=== PATIENT | male | born 1940 | race Caucasian/White ===

== ENCOUNTER 2022-06-05 11:57 | Outpatient (CLI) | payer MEDICARE, SELFPAY | END 2022-06-05 11:58 | disposition home or self-care (01) | LOC: NFLDUCREF 06-09 10:10 | PROVIDERS: PCP Internal Medicine; Visit Provider Nurse Practitioner Family | DX: R33.9 Retention of urine, unspecified (principal); R39.9 Unspecified symptoms and signs involving the genitourinary system; R82.90 Unspecified abnormal findings in urine | CPT/HCPCS: 87086 ==

== ENCOUNTER 2022-06-05 12:44 | Emergency (ER) | payer MEDICARE, SELFPAY ==
[2022-06-05] VITALS (17 sets, daily range): BP systolic 144–187; BP diastolic 67–90; PULSE 30–45; RESP 18; TEMP 36.2; O2SAT 94–99; BMI 30.8
--- NOTE | 2022-06-05 12:55 | ED.GENADULT ---
HPI - General Adult General Time Seen by Provider: 12:55 Date Seen: 06/05/22 Chief complaint: Arrhythmia/Palpitations Stated complaint: Possible Heart Problem Time Seen by Provider: 06/05/22 12:54 Source: patient and RN notes reviewed Mode of arrival: ambulatory Limitations: no limitations History of Present Illness HPI narrative: Patient is an 82-year-old male referred to us from urgent care with a pulse in the 30s. He went to Urgent Care for urinary symptoms with difficulty urinating, dribbling, difficulty with stream. He denies any fevers chills, no abdominal pain. He has never been evaluated for urinary difficulty before. He has no dysuria. He has felt short of breath over week or so, states his blood pressure machine is not been able to read his pulse for the last week or so. He notes he goes outside in the cool air gets moving around and then feels better. Very remote history of smoking, nothing current. He has not been sick with any cough or cold symptoms. Does not believe he has been ill with COVID. No nausea or vomiting. He denies any history of arrhythmia before. He states his family members all of heart attacks and follow over and knock their teeth out. He states he is not staying in the hospital, he is going home. He does not want me to forget him in the room for the next week. He denies any swelling. He is on no prescription medicines, will use Tylenol periodically for joint aches and pains. Related Data Previous Rx's Medication Instructions Recorded amoxicillin 875 mg-potassium 1 tab PO BID 7 days #13 tabs 06/05/22 clavulanate 125 mg tablet Allergies Allergy/AdvReac Type Severity Reaction Status Date / Time No Known Drug Allergies Allergy Verified 06/05/22 10:46 Review of Systems Status of ROS: Reports: 10 or more systems reviewed and unremarkable except as noted in History and below Exam Const: Vital Signs, click to edit/add: Vital Signs - 24 hr 06/05/22 12:50 06/05/22 13:03 06/05/22 13:15 Temperature 97.1 F L Pulse Rate 30 L Pulse Rate [Right Pulse Oximeter] 34 L Respiratory Rate 18 Blood Pressure Blood Pressure [Ri ght Upper Arm] 187/81 H Pulse Oximetry 97 95 97 Oxygen Delivery Me thod Room Air 06/05/22 13:18 06/05/22 13:19 06/05/22 13:30 Temperature Pulse Rate 40 L 34 L 31 L Pulse Rate [Right Pulse Oximeter] Respiratory Rate Blood Pressure 144/85 H Blood Pressure [Ri ght Upper Arm] Pulse Oximetry 97 99 98 Oxygen Delivery Me thod 06/05/22 13:32 06/05/22 13:51 06/05/22 13:53 Temperature Pulse Rate 32 L 33 L 34 L Pulse Rate [Right Pulse Oximeter] Respiratory Rate Blood Pressure 151/77 H 157/90 H Blood Pressure [Ri ght Upper Arm] Pulse Oximetry 95 97 94 Oxygen Delivery Me thod 06/05/22 14:00 06/05/22 14:02 06/05/22 14:03 Temperature Pulse Rate 31 L 32 L 31 L Pulse Rate [Right Pulse Oximeter] Respiratory Rate Blood Pressure 164/67 H Blood Pressure [Ri ght Upper Arm] Pulse Oximetry 96 94 94 Oxygen Delivery Me thod 06/05/22 14:15 06/05/22 14:30 06/05/22 14:32 Temperature Pulse Rate 31 L 42 L 33 L Pulse Rate [Right Pulse Oximeter] Respiratory Rate Blood Pressure 155/69 H Blood Pressure [Ri ght Upper Arm] Pulse Oximetry 96 94 95 Oxygen Delivery Me thod Documenting provider has reviewed patient's vital signs: yes Common normals: no apparent distress, oriented x3, no limitations, healthy appearing, alert and well nourished General appearance: cooperative, comfortable and well kempt Nutritional appearance: overweight HENMT: Common normals: normocephalic, head/scalp atraumatic, hearing grossly normal bilaterally, external nose normal, nasal mucous membranes and turbinates normal, moist oral mucous membranes, oropharynx normal, dentition normal and gingiva normal Head and scalp: normocephalic and atraumatic Nose: external nose normal and nasal mucous membranes and turbinates normal Eye: Common normals: PERRL, EOMs intact bilaterally, conjunctivae normal and no scleral icterus Conjunctiva: conjunctiva(e) normal Pupil: PERRL Neck & C-Spine: Common normals: full ROM, no lymphadenopathy, supple, no meningeal signs, no JVD and thyroid normal Thyroid: thyroid normal Chest: Common normals: inspection of chest normal and palpation of chest normal Resp: Common normals: normal respiratory effort, no retractions, no use of accessory muscles and clear to auscultation bilaterally Auscultation: clear to auscultation bilaterally Cardio: Common normals: no JVD, S1 normal heart sound, S2 normal heart sound, no gallops, no clicks and no murmurs Rate: bradycardic Heart sounds: S1 normal and S2 normal GI: Common normals: Normal to inspection, nondistended, normoactive bowel sounds present, soft to palpation, non-tender, no hepatosplenomegaly and no masses Palpation: soft and no hepatosplenomegaly Extremity: Common normals: normal to inspection, full ROM, normal capillary refill, no joint enlargement, no clubbing, cyanosis or edema, no calf tenderness and no pedal edema Neuro: Common normals: oriented x3 Sensorium/orientation: alert Meningeal signs: no meningeal signs Psych: Appearance: well kempt Course Course Hospital Course: Patient will be on cardiac monitoring, pulse oximetry. Will get appropriate labs, will get a portable chest x-ray. They have urinalysis at urgent care which will be reviewed, will obtain a bladder scan to see if this is outlet obstruction. The bradycardia does not seem to be medication induced as he states the only thing he takes is Tylenol. Thus, is likely sinus node dysfunction and will need to talk to Cardiology at some point but will await labs first. Reevaluation(s) Reevaluation #1: Reviewed with David crowe a discussion with the billing and quality technician. They plan to follow up with [facility] in [place]. We will give him a dose of oral antibiotics here. Given that there is the possibility of some pneumonia on his chest x-ray, although he is not clinically having excessive symptoms, will cover with Augmentin for UTI and possible lung etiology based on his chest x-ray. Really he notes if he feels short of breath if he starts moving around getting up and being active, this actually improves. Time: 14:52 Consultations Consultation #1: Spoke with Dr. Toledo cardiology on-call from [email or web address]. He felt this patient could be monitored outpatient. I did send him the EKG. He would recommend outpatient monitoring to assess the burden, obtain an echo. Reviewed with him that patient felt better when he was active, he felt that made ischemic disease less likely as possible etiology. Time: 14:18 Vital Signs Vital signs: Initial Vital Signs Temperature 97.1 F L 06/05/22 12:50 Temperature Source Temporal Artery Scan 06/05/22 12:50 Pulse Rate 34 L 06/05/22 12:50 Respiratory Rate 18 06/05/22 12:50 Blood Pressure 187/81 H 06/05/22 12:50 Blood Pressure Mean 116 06/05/22 12:50 Blood Pressure Position Sitting 06/05/22 12:50 Pulse Oximetry 97 06/05/22 12:50 Oxygen Delivery Method 06/05/22 12:50 Vital Signs Temperature 97.1 F L 06/05/22 12:50 Pulse Rate 34 L 06/05/22 12:50 Respiratory Rate 18 06/05/22 12:50 Blood Pressure 187/81 H 06/05/22 12:50 Pulse Oximetry 97 06/05/22 12:50 Oxygen Delivery Method 06/05/22 12:50 Temperature 97.1 F L 06/05/22 12:50 Pulse Rate 33 L 06/05/22 14:32 Respiratory Rate 18 06/05/22 12:50 Blood Pressure 155/69 H 06/05/22 14:32 Pulse Oximetry 95 06/05/22 14:32 Oxygen Delivery Method 06/05/22 12:50 Medical Decision Making Lab Data Lab results reviewed: Yes I reviewed the patient's lab results Labs: Lab Results 06/05/22 06/05/22 06/05/22 Range/Units 12:55 12:55 12:55 WBC 6.75 (4.50-11.00) K/uL RBC 4.33 (4.30-5.90) m/uL Hgb 15.0 (13.5-17.5) gm/dL Hct 44.1 (37.0-53.0) % MCV 102 H (80-100) fL MCH 35 H (26-34) pg MCHC 34 (32-36) gm/dL RDW Coeff of Mike 13.5 (11.5-15.5) % Plt Count 203 (140-440) K/uL Neut % (Auto) 61.3 (42.0-72.0) % Lymph % (Auto) 27.6 (20-44) % Bacon % (Auto) 9.8 (0.0-11.0) % Eos % (Auto) 0.6 (0.0-7.0) % Baso % (Auto) 0.3 (0.0-3.0) % Neut # (Auto) 4.14 (1.7-7.0) K/uL Lymph # (Auto) 1.86 (0.90-2.90) K/uL Bacon # (Auto) 0.70 (0.00-0.90) K/UL Eos # (Auto) 0.04 (0.00-0.50) K/uL Baso # (Auto) 0.02 (0.00-0.30) K/uL Abs Immat Gran (auto) 0.03 (0.00-0.30) K/uL VBG pH (7.32-7.43) VBG pCO2 (40-50) mmHG VBG pO2 (25-47) mmHG VBG HCO3 (21-28) mmol/L Sodium 141 (135-149) mmol/L Potassium 3.8 (3.6-5.1) mmol/L Chloride 105 (96-114) mmol/L Carbon Dioxide 27 (20-32) mmol/L BUN 15 (7-30) mg/dL Creatinine 1.0 (0.5-1.5) mg/dL Estimated Creat Clear 65.08 Estimated GFR 75 ml/min Glucose 118 H (60-115) mg/dL Calcium 9.2 (8.4-10.6) mg/dL Magnesium 2.2 (1.5-2.6) mg/dL Total Bilirubin 1.1 (0.1-1.5) mg/dL AST 30 (12-35) U/L ALT 23 (4-50) U/L Alkaline Phosphatase 117 (40-150) U/L C-Reactive Protein 0.7 (0.5-1.0) mg/dL NT-Pro-B Natriuret Pep 444 (0-450) PG/mL Total Protein 7.2 (6.0-8.3) g/dL Albumin 4.5 (3.3-5.0) g/dL TSH 2.290 (0.270-4.200) uIU/mL SARS-CoV-2 (PCR) (Negative) POC Troponin I (0.01-0.04) ng/ml 06/05/22 06/05/22 06/05/22 Range/Units 12:55 13:03 13:03 WBC (4.50-11.00) K/uL RBC (4.30-5.90) m/uL Hgb (13.5-17.5) gm/dL Hct (37.0-53.0) % MCV (80-100) fL MCH (26-34) pg MCHC (32-36) gm/dL RDW Coeff of Mike (11.5-15.5) % Plt Count (140-440) K/uL Neut % (Auto) (42.0-72.0) % Lymph % (Auto) (20-44) % Bacon % (Auto) (0.0-11.0) % Eos % (Auto) (0.0-7.0) % Baso % (Auto) (0.0-3.0) % Neut # (Auto) (1.7-7.0) K/uL Lymph # (Auto) (0.90-2.90) K/uL Bacon # (Auto) (0.00-0.90) K/UL Eos # (Auto) (0.00-0.50) K/uL Baso # (Auto) (0.00-0.30) K/uL Abs Immat Gran (auto) (0.00-0.30) K/uL VBG pH 7.395 (7.32-7.43) VBG pCO2 47 (40-50) mmHG VBG pO2 32.9 (25-47) mmHG VBG HCO3 29 H (21-28) mmol/L Sodium (135-149) mmol/L Potassium (3.6-5.1) mmol/L Chloride (96-114) mmol/L Carbon Dioxide (20-32) mmol/L BUN (7-30) mg/dL Creatinine (0.5-1.5) mg/dL Estimated Creat Clear Estimated GFR ml/min Glucose (60-115) mg/dL Calcium (8.4-10.6) mg/dL Magnesium (1.5-2.6) mg/dL Total Bilirubin (0.1-1.5) mg/dL AST (12-35) U/L ALT (4-50) U/L Alkaline Phosphatase (40-150) U/L C-Reactive Protein (0.5-1.0) mg/dL NT-Pro-B Natriuret Pep (0-450) PG/mL Total Protein (6.0-8.3) g/dL Albumin (3.3-5.0) g/dL TSH (0.270-4.200) uIU/mL SARS-CoV-2 (PCR) Negative SARS-CoV-2 (Negative) POC Troponin I 0.00 L (0.01-0.04) ng/ml Imaging Data Chest x-ray: Attestation: I have reviewed the pertinent imaging results. Radiologist's impression: Patient: [facility] Facility:?[facility] Patient ID:?[id number] Site Patient ID:?[id number]. Site :?[id number] Study:?XRay Chest PORTABLE-06/05/2022 1:24:42 PM Ordering Physician:Lilly Harris Final Report: INDICATION: Bradycardia. COMPARISON: None. TECHNIQUE: Single chest radiograph. FINDINGS: Heart size is not enlarged. Linear right lower lobe pulmonary opacities which may represent atelectasis. No significant pleural effusion or pneumothorax. IMPRESSION: Right lower lobe pulmonary opacities may represent atelectasis, however aspiration or infection could have a similar appearance. Dictated by Eric Nielsen MD @ 06/05/2022 2:00:02 PM (Electronic Signature) ECG Data Attestation: I personally reviewed and interpreted this ECG as follows: (Bradycardia, about 30 for rate, bigeminy pattern.) Prior ECG tracings: not available for review Critical Care Time Critical Care Time Critical Care Time: No Discharge Plan Discharge Clinical Impression: Urinary tract infection, Bradycardia Condition: Stable Instructions: Urinary Tract Infection in Men (ED), Bradycardia (ED) Additional Instructions: Next dose of your antibiotic is due tomorrow morning, please start it then and take as prescribed. You need to follow up in clinic this week. You need to get scheduled for some type of cardiac monitoring like a Holter or whatever your physician in clinic uses there. You also will need an echo. They will need to refer you to cardiology. If you are becoming symptomatic from your low pulse rate or bradycardia, do need to be evaluated in emergency room. Please review handout. As far as the urinary tract infection, take antibiotics, we will also culture the urine. If your urinary symptoms continue despite treatment for urinary tract infection, you will need further workup and evaluation which can be done through clinic. Activity Level: Activity as Tolerated Prescriptions: New amoxicillin-pot clavulanate 875-125 mg tablet 1 tab PO BID 7 Days Qty: 13 0RF Follow Up/Referrals: Juve Lutz MD [Primary Care Provider] - Stand Alone Forms: [facility] Info Instructions
--- NOTE | 2022-06-05 13:03 | CRLHL7_ITS ---
For Patients: As a result of the Cures Act, medical imaging exams and procedure reports are released immediately into your electronic medical record. You may view this report before your referring provider. If you have questions, please contact your health care provider. INDICATION: Bradycardia. COMPARISON: None. TECHNIQUE: Single chest radiograph. FINDINGS: Heart size is not enlarged. Linear right lower lobe pulmonary opacities which may represent atelectasis. No significant pleural effusion or pneumothorax. IMPRESSION: Right lower lobe pulmonary opacities may represent atelectasis, however aspiration or infection could have a similar appearance. Dictated by Eric Nielsen MD @ 06/05/2022 2:00:02 PM (Electronically Signed)
[2022-06-05 13:13] LABS: HCO3 VBG 29 mmol/L (21-28); PCO2 VBG 47 mmHG (40-50); PO2 VBG 32.9 mmHG (25-47); pH VBG 7.395 (7.32-7.43)
[2022-06-05 13:18] LABS: Basophils Absolute Auto 0.02 K/uL (0.00-0.30); Basophils Percent Auto 0.3 % (0.0-3.0); Eosinophils Absolute Auto 0.04 K/uL (0.00-0.50); Eosinophils Percent Auto 0.6 % (0.0-7.0); Hematocrit 44.1 % (37.0-53.0); Immature Granulocytes Abs Auto 0.03 K/uL (0.00-0.30); Lymphocytes Absolute Auto 1.86 K/uL (0.90-2.90); Lymphocytes Percent Auto 27.6 % (20-44); Mean Corpuscular HGB Conc 34 gm/dL (32-36); Mean Corpuscular Hemoglobin 35 pg (26-34); Mean Corpuscular Volume 102 fL (80-100); Monocytes Percent Auto 9.8 % (0.0-11.0); Neutrophils Absolute Auto 4.14 K/uL (1.7-7.0); Neutrophils Percent Auto 61.3 % (42.0-72.0); Platelet Count* 203 K/uL (140-440); RDW Coefficient of Variation % 13.5 % (11.5-15.5); Red Blood Count 4.33 m/uL (4.30-5.90); White Blood Count* 6.75 K/uL (4.50-11.00)
[2022-06-05 13:26] LABS: Slide Review Reflex No
[2022-06-05 13:31] LABS: Albumin* 4.5 g/dL (3.3-5.0); Chloride* 105 mmol/L (96-114); Sodium* 141 mmol/L (135-149)
[2022-06-05 13:32] LABS: Potassium* 3.8 mmol/L (3.6-5.1)
[2022-06-05 13:35] LABS: Alanine Aminotransferase* 23 U/L (4-50); Alkaline Phosphatase* 117 U/L (40-150); Aspartate Amino Transferase* 30 U/L (12-35); Bilirubin Total* 1.1 mg/dL (0.1-1.5); Blood Urea Nitrogen* 15 mg/dL (7-30); Calcium* 9.2 mg/dL (8.4-10.6); Carbon Dioxide* 27 mmol/L (20-32); Est. Creatinine Clearance* 65.08; Estimated Glomerular Filt Rate 75 ml/min; Glucose* 118 mg/dL (60-115); Magnesium* 2.2 mg/dL (1.5-2.6); Total Protein* 7.2 g/dL (6.0-8.3)
[2022-06-05 13:38] LABS: C Reactive Protein* 0.7 mg/dL (0.5-1.0)
[2022-06-05 13:44] LABS: NT Pro B Type NatriureticPept* 444 PG/mL (0-450)
--- NOTE | 2022-06-05 13:53 | ED.NURSE ---
Bladder scan done, ~305mLs. Pt stood at bedside and used urinal, voided approx ~225mLs.
[2022-06-05 14:27] LABS: SARS PCR* Negative SARS-CoV-2 (Negative)
[2022-06-05] MEDS: AMOXICILLIN/CLAVULANATE 875 mg/125 mg TABLET PO (14:57)
== END 2022-06-05 15:22 | disposition home or self-care (01) ==
PROVIDERS: Emergency Provider Family Medicine; PCP Internal Medicine
DX: R00.1 Bradycardia, unspecified (principal); N39.0 Urinary tract infection, site not specified; Z13.6 Encounter for screening for cardiovascular disorders
CPT/HCPCS: 36415; 71045; 80053; 82803; 83735; 83880; 84443; 84484; 85025; 86140; 87086; 87635; 93005; 94761; 99284; 99285; A9270

== ENCOUNTER 2022-06-11 10:40 | Emergency (ER) | payer MEDICARE, SELFPAY ==
[2022-06-11 10:54] VITALS: BP 142/67; PULSE 40; RESP 20; TEMP 36.7; O2SAT 97; BMI 30.8
--- NOTE | 2022-06-11 11:11 | ED_ITS ---
HPI - General Adult General Chief complaint: Urogenital Problems, Male Stated complaint: UTI only half better and only 1 pill left Time Seen by Provider: 06/11/22 10:55 Source: patient Mode of arrival: ambulatory Limitations: no limitations History of Present Illness HPI narrative: Patient is an angry 82-year-old male coming in today requesting antibiotics. He states he was given antibiotics last Monday, so 7 days ago, for a UTI. He states that he feels he is about 50% better and that he needs another week of antibiotics. When I ask him what is 50% better he tells me that he had had no symptoms when he was diagnosed with a UTI. So again, I ask him what is 50% better and he tells me that the dribbling when he finishes urination has improved a little bit but is not completely gone. He denies any abdominal pain, flank pain, fevers or chills. No nausea or vomiting. He denies any dysuria. He states he has had increased urinary frequency for about a year. He also states that he dribbles after he urinates and feels like he does not completely empty, this is also been occurring for about a year. He tells me this is all started when he got his COVID vaccine. I reviewed patient's medical records from last week, he had come in for dribbling postvoid and was found to have bradycardia. He states that he did follow-up with cardiology yesterday and has another follow-up appointment on Monday. He denies any chest pain, dizziness, shortness of breath. I do ask the patient why he seems so angry today and he tells me that living with this postvoid dribbling is miserable and that getting up in the middle of the night to urinate multiple times is also miserable he is very angry about the fact that no one has been able to fix his problem. Related Data Previous Rx's Medication Instructions Recorded amoxicillin 875 mg-potassium 1 tab PO BID 7 days #13 tabs 06/05/22 clavulanate 125 mg tablet Allergies Allergy/AdvReac Type Severity Reaction Status Date / Time No Known Drug Allergies Allergy Verified 06/05/22 10:46 Review of Systems Status of ROS: Reports: 10 or more systems reviewed and unremarkable except as noted in History and below PFSH PFS Social History Smoking Status: Former smoker Do you use any of these nicotine containing products: None Second hand tobacco smoke exposure: No How often do you have a drink containing alcohol: 4 or more times a week How many standard drinks containing alcohol do you have on a typical day: 3 or 4 How often do you have six or more drinks on one occasion: Weekly AUDIT-C Alcohol total score: 8 Non-prescribed substance use: denies use Exam Narrative: Exam Narrative: Overweight, well-developed elderly patient in no acute distress. Alert and oriented. Answers questions appropriately. Mood is angry. Patient speaks in full sentences without needing to catch his breath. HEENT: Normocephalic atraumatic. Extraocular muscles are intact. Conjunctivae are moist without any icterus noted. Moist mucous membranes. = Abdomen: Soft and nontender. Skin: Well perfused without any obvious rashes. Const: Vital Signs, click to edit/add: Vital Signs - 24 hr 06/11/22 10:54 Temperature 98.1 F Pulse Rate [Right Pulse Oximeter] 40 L Respiratory Rate 20 Blood Pressure [Ri ght Upper Arm] 142/67 H Pulse Oximetry 97 Oxygen Delivery Me thod Room Air Course Course Hospital Course: We had a conversation that the likely cause of his symptoms are not UTI and that potentially has an enlarged prostate causing his symptoms. I do recommend repeat urinalysis which the patient agreed with. Urinalysis was unremarkable and looked improved from the 1 done last week. Vital Signs Vital signs: Initial Vital Signs Temperature 98.1 F 06/11/22 10:54 Temperature Source Temporal Artery Scan 06/11/22 10:54 Pulse Rate 40 L 06/11/22 10:54 Pulse Rhythm 06/11/22 10:54 Respiratory Rate 20 06/11/22 10:54 Blood Pressure 142/67 H 06/11/22 10:54 Blood Pressure Mean 92 06/11/22 10:54 Blood Pressure Position Sitting 06/11/22 10:54 Pulse Oximetry 97 06/11/22 10:54 Oxygen Delivery Method 06/11/22 10:54 Vital Signs Temperature 98.1 F 06/11/22 10:54 Pulse Rate 40 L 06/11/22 10:54 Respiratory Rate 20 06/11/22 10:54 Blood Pressure 142/67 H 06/11/22 10:54 Pulse Oximetry 97 06/11/22 10:54 Oxygen Delivery Method 06/11/22 10:54 Temperature 98.1 F 06/11/22 10:54 Pulse Rate 40 L 06/11/22 10:54 Respiratory Rate 20 06/11/22 10:54 Blood Pressure 142/67 H 06/11/22 10:54 Pulse Oximetry 97 06/11/22 10:54 Oxygen Delivery Method 06/11/22 10:54 Medical Decision Making MDM Narrative Medical decision making narrative: Frequent urination at night, dribbling postvoid-likely prostate hypertrophy. I do recommend he follow up with primary care provider to discuss this further and have a proper exam done as he did not want have a prostate exam done in the ER today. Patient was agreeable had no other questions. Medical Records Medical records reviewed: Yes I reviewed the patient's medical records Lab Data Lab results reviewed: Yes I reviewed the patient's lab results Labs: Lab Results 06/11/22 Range/Units 11:40 Urine Color Yellow (Yellow) Urine Appearance Clear (Clear) Urine pH 6.0 (5.0-8.5) Ur Specific [place] 1.015 (1.000-1.030) Urine Protein Negative (Negative) Urine Glucose (UA) Negative (Negative) Urine Ketones Negative (Negative) Urine Blood Negative (Negative) Urine Nitrite Negative (Negative) Urine Bilirubin Negative (Negative) Urine Urobilinogen 0.2 (0.2-1.0) Ur Leukocyte Esterase Trace A (Negative) Urine RBC 0-2 (0-2) Urine WBC 2-5 (0-5) Ur Squamous Epith Cells Few (None-Few) Urine Bacteria Few A (None) Discharge Plan Discharge Clinical Impression: Enlarged prostate Patient Disposition: Home, Self-Care Condition: Stable Additional Instructions: Your symptoms are likely due to an enlarged prostate gland. You should follow- up with your primary care provider to discuss this further and to talk about potential treatments. Prescriptions: No Action amoxicillin-pot clavulanate 875-125 mg tablet 1 tab PO BID 7 Days Qty: 13 0RF Follow Up/Referrals: Juve Lutz MD [Primary Care Provider] - Stand Alone Forms: [employer] Info Instructions
[2022-06-11 11:53] LABS: Appearance Urine Clear (Clear); Bilirubin Urine Negative (Negative); Blood Urine Negative (Negative); Color Urine Yellow (Yellow); Glucose Urine Negative (Negative); Ketones Urine Negative (Negative); Leukocyte Esterase Urine Trace (Negative); Nitrite Urine Negative (Negative); Protein Urine Negative (Negative); Specific Gravity Urine 1.015 (1.000-1.030); Urobilinogen Urine 0.2 (0.2-1.0)
[2022-06-11 12:17] LABS: RBC Urine 0-2 (0-2); Squamous Epithelial Cell Urine Few (None-Few)
[2022-06-11 12:18] LABS: Bacteria Urine Few
[2022-06-11 12:40] VITALS: BP 142/67; PULSE 42; RESP 20; TEMP 36.7
== END 2022-06-11 12:42 | disposition home or self-care (01) ==
PROVIDERS: Emergency Provider Family Medicine; PCP Internal Medicine
DX: N40.0 Benign prostatic hyperplasia without lower urinary tract symptoms (principal)
CPT/HCPCS: 81001; 87086; 87186; 99283; 99284

== ENCOUNTER 2024-07-24 08:03 | Emergency (ER) | payer MEDICARE, SELFPAY ==
[2024-07-24 08:10] VITALS: BP 162/125; PULSE 56; RESP 20; TEMP 36.2; O2SAT 98; BMI 30.8
--- NOTE | 2024-07-24 08:21 | ED.GENADULT ---
HPI - General Adult General Time Seen by Provider: 08:21 Date Seen: 07/24/24 Chief complaint: Flank Pain Stated complaint: thinks he has a kidney stone Time Seen by Provider: 07/24/24 08:21 Source: patient, family and RN notes reviewed Mode of arrival: ambulatory Limitations: no limitations History of Present Illness HPI narrative: This 84-year-old male is coming in with complaint of left flank pain. He wonders if he has a kidney stone. He thought he would have passed it. He has been dealing with this for probably months now. He does not go to the doctor. He is here with his . Pain seem worse last night. He does note that sometimes when he walks he will be stooped over. He did have some low back pain last night. 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 He will feel it in the left flank area, sometimes it will radiate under is ribs, sometimes he will feel a spasm in the back there. It does radiate down towards the groin area at times. He has not noticed any fevers or chills, no change in urination, no hematuria, no change in bowel habits, feels his bowels are still going normally. He notes no change in appetite, no nausea or vomiting. No noted trauma. He sometimes will cough up some phlegm but no definite respiratory symptoms with this, no difficulty breathing, no chest pain with this. Notes that sitting on the bed feels the best right now. Has been using Tylenol with some improvement. Related Data Previous Rx's ?Medication ?Instructions ?Recorded cephalexin 500 mg tablet 500 mg PO TID #21 tabs 07/24/24 Allergies Allergy/AdvReac Type Severity Reaction Status Date / Time No Known Drug Allergies Allergy Verified 06/05/22 10:46 Review of Systems Status of ROS: Reports: 6 or more systems reviewed and unremarkable except as noted in History and below [facility] Medical History (Updated 07/24/24 @ 11:54 by Kimberly Morrison MD) Nephrolithiasis ?N20.0 - Calculus of kidney (ICD-10) Social History Smoking Status: Former smoker Do you use any of these nicotine containing products: None Second hand tobacco smoke exposure: No How often do you have a drink containing alcohol: 4 or more times a week How many standard drinks containing alcohol do you have on a typical day: 3 or 4 How often do you have six or more drinks on one occasion: Weekly AUDIT-C Alcohol total score: 8 Non-prescribed substance use: denies use service: No Exam Const: Vital Signs, click to edit/add: Vital Signs - 24 hr 07/24/24 08:10 Temperature 97.1 F L Pulse Rate [Pulse Oximeter] 56 L Respiratory Rate 20 Blood Pressure [Ri ght Upper Arm] 162/125 H Pulse Oximetry 98 Oxygen Delivery Me thod Room Air With this 84-year-old male is sitting up on the edge of the bed in exam room 3. He is alert, interactive, no apparent distress. Sclera clear, conjugate gaze, symmetrical facial function, speech is normal. Neck is supple, no masses, jugular venous distension. Lungs are clear, good air entry, no wheezing crackles. No midline tenderness over his spine, back visualized and see no skin changes. CV regular rate and rhythm, soft 1-2 systolic ejection murmur heard, normal S1-S2, no S3-S4. No palpable tenderness over the lateral flank. Abdomen is soft, nontender, do not feel any organomegaly. He has no lower extremity edema. Documenting provider has reviewed patient's vital signs: yes Course Course ED Course: This is an 84-year-old male with out medical care coming in with left flank pain that does radiate in to lower abdomen. He has also had some low back pain, long-term history as a straight truck driver, remote smoking history. He is hypertensive on arrival, could be pain equivalent or could be underlying undiagnosed hypertension. Patient's differential is very broad and at 84 years of age need to consider vascular etiologies, possible back issues with neurogenic pain, patient is correct that this could be urologic but given months of history, makes it less likely to be a chronic kidney stone. Could be GI in nature, certainly could be cancerous process manifesting. Will start with noncontrast CT and image his lumbar spine with this, may need to go back with CT with IV contrast. Radiology is already aware. Will do full complement of screening labs including urinalysis. Reevaluation(s) Time of Reevaluation #1: 10:23 Reevaluation #1: Reviewed with patient that his urinalysis looks positive, will order IV Rocephin. There is some renal changes that require further characterization and given abnormal UA, do feel it is necessary to do at this time. Will go back and imaging with CT with IV contrast renal protocol. Need to ensure that he does not need any intervention with infected UA. Patient tells me at this time he does have a history of kidney stone before, was on the right side though. Sounds as if it passed without complication. Time of Reevaluation #2: 11:46 Reevaluation #2: Have reviewed with patient his CT including the lumbar CT 3, did provide copy of the lumbar CT and contrast CT. No evidence of concerning lesion on his kidney, appears benign. Urinalysis definitely looks to be infected, we will culture this. Did order g IV Rocephin but patient does not want to wait, nursing staff can cancel this if he does not want to wait. He is not septic, labs are reassuring, can discharge to home with oral antibiotics. We did discuss that there is a retained stone in the right kidney but nothing obstructing. He he does bring up medial calf pain that starts happening with walking, this certainly could be is back, did discuss spinal stenosis in the lumbar CT. Again he has copies of these and does need to follow-up. He is not sure if he wants to follow-up here, they may go down to [place] for the winter. Certainly can bring knees CT reports with him and follow up in [place]. Did discuss the complications with spinal stenosis and why it is important to have follow-up for that. His left flank pain certainly could be from thoracic discogenic disease. Is possible he might be getting some pain from his renal cyst but I doubt that. The retained stone in the kidney is on the right side, not the left. Vital Signs Vital signs: Initial Vital Signs Temperature 97.1 F L 07/24/24 08:10 Temperature Source Temporal Artery Scan 07/24/24 08:10 Pulse Rate 56 L 07/24/24 08:10 Pulse Rhythm Regular 07/24/24 08:10 Respiratory Rate 20 07/24/24 08:10 Blood Pressure 162/125 H 07/24/24 08:10 Blood Pressure Mean 137 H 07/24/24 08:10 Blood Pressure Position Sitting 07/24/24 08:10 Pulse Oximetry 98 07/24/24 08:10 Oxygen Delivery Method Room Air 07/24/24 08:10 Vital Signs Temperature 97.1 F L 07/24/24 08:10 Pulse Rate 56 L 07/24/24 08:10 Respiratory Rate 20 07/24/24 08:10 Blood Pressure 162/125 H 07/24/24 08:10 Pulse Oximetry 98 07/24/24 08:10 Oxygen Delivery Method Room Air 07/24/24 08:10 Temperature 97.1 F L 07/24/24 08:10 Pulse Rate 56 L 07/24/24 08:10 Respiratory Rate 20 07/24/24 08:10 Blood Pressure 162/125 H 07/24/24 08:10 Pulse Oximetry 98 07/24/24 08:10 Oxygen Delivery Method Room Air 07/24/24 08:10 Medications Administered Medications: Discontinued Medications Generic Name Dose Route Start Last Admin Trade Name Freq PRN Reason Stop Dose Admin Sodium Chloride 500 mls @ 500 mls/hr 07/24/24 08:56 07/24/24 09:22 0.9 % Sodium Chloride 500 Ml IV 07/24/24 09:55 Infused .Q1H ONE Infusion Medical Decision Making Lab Data Lab results reviewed: Yes I reviewed the patient's lab results Labs: Lab Results 07/24/24 07/24/24 Range/Units 08:36 09:20 WBC 6.52 (4.50-11.00) K/uL RBC 4.33 (4.30-5.90) m/uL Hgb 14.7 (13.5-17.5) gm/dL Hct 44.1 (37.0-53.0) % MCV 102 H (80-100) fL MCH 34 (26-34) pg MCHC 33 (32-36) gm/dL RDW Coeff of Mike 13.0 (11.5-15.5) % Plt Count 261 (140-440) K/uL Neut % (Auto) 52.3 (42.0-72.0) % Lymph % (Auto) 32.4 (20-44) % Pettis % (Auto) 12.9 H (0.0-11.0) % Eos % (Auto) 1.8 (0.0-7.0) % Baso % (Auto) 0.3 (0.0-3.0) % Neut # (Auto) 3.41 (1.7-7.0) K/uL Lymph # (Auto) 2.11 (0.90-2.90) K/uL Pettis # (Auto) 0.80 (0.00-0.90) K/UL Eos # (Auto) 0.12 (0.00-0.50) K/uL Baso # (Auto) 0.02 (0.00-0.30) K/uL Abs Immat Gran (auto) 0.02 (0.00-0.30) K/uL Imm/Tot Granulo (auto) 0.3 % Sodium 139 (135-149) mmol/L Potassium 4.3 (3.6-5.1) mmol/L Chloride 107 (96-114) mmol/L Carbon Dioxide 24 (20-32) mmol/L Anion Gap 8 (7-15) mEq/L BUN 24 (7-30) mg/dL Creatinine 1.0 (0.5-1.5) mg/dL Estimated Creat Clear 62.79 Estimated GFR 74 ml/min Glucose 107 (60-115) mg/dL Lactate 1.1 (0.5-1.9) mmol/L Calcium 9.3 (8.4-10.6) mg/dL Total Bilirubin 0.8 (0.1-1.5) mg/dL Direct Bilirubin 0.3 (0.0-0.5) mg/dL AST 29 (12-35) U/L ALT 17 (4-50) U/L Alkaline Phosphatase 102 (40-150) U/L C-Reactive Protein 1.0 (0.5-1.0) mg/dL Total Protein 7.3 (6.0-8.3) g/dL Albumin 4.3 (3.3-5.0) g/dL Urine Color Yellow (Yellow) Urine Appearance Clear (Clear) Urine pH 6.0 (5.0-8.5) Ur Specific [place] 1.025 (1.000-1.030) Urine Protein Negative (Negative) Urine Glucose (UA) Negative (Negative) Urine Ketones Negative (Negative) Urine Blood Negative (Negative) Urine Nitrite Positive A (Negative) Urine Bilirubin Negative (Negative) Urine Urobilinogen 0.2 (0.2-1.0) Ur Leukocyte Esterase 1+ A (Negative) Urine RBC 0-2 (0-2) Urine WBC 5-10 A (0-5) Ur Squamous Epith Cells Few (None-Few) Urine Bacteria Many A (None) Imaging Data CT scan - abdomen: Attestation: I have reviewed the pertinent imaging results. Radiologist's impression: Patient: SILVINA JARRELL Facility:?[facility] RIS Patient ID:?[id number] Site Patient ID:?[id number]. Site :?[id number] Study:?CT-Abdomen/Pelvis WITHOUT-07/24/2024 8:59:13 AM Ordering Physician:?Prince Harris Final Report: INDICATION: Left flank pain. COMPARISON: None available. TECHNIQUE: CT of the abdomen and pelvis without intravenous contrast. Please note that all CT scans at this facility use dose modulation, iterative reconstruction, and/or weight-based dosing when appropriate to reduce radiation dose to as low as reasonably achievable. FINDINGS: The study is performed without intravenous contrast. This limits the sensitivity of the exam for the detection bowel pathology, focal lesions of the abdominopelvic viscera and vascular pathology including significant vascular stenosis, occlusion and dissection. ABDOMEN Liver: Normal contour and attenuation.Diffuse hepatic parenchymal hyperattenuation (89 HU). Differential diagnostic considerations include hemochromatosis. No significant focal lesion. No intrahepatic biliary ductal dilatation. Gallbladder: Suspect cholelithiasis. No pericholecystic inflammatory changes. Normal common duct caliber. Pancreas: Normal contour and attenuation. No peripancreatic inflammatory changes. No significant focal lesion. Normal main duct caliber. Spleen: Not enlarged. No significant focal lesion. Adrenal Glands: Symmetrical adrenal glands. No significant focal lesion. Kidneys: Incompletely characterized exophytic left lower pole renal cortical cyst measuring 4.7 cm in greatest axial dimensions (3; 78) otherwise notable for internal septal calcification. Attenuation is that of simple fluid measuring less than 10 HU. No solid elements are identified on this noncontrast study. Additional left renal cortical cysts including a medial exophytic interpolar renal cortical cyst measuring 4.2 cm (3; 56) and a 1.5 cm left lower pole renal cortical cyst (3; 76). 3 mm nonobstructing interpolar right nephrolith (3; 63). No dilatation of the intrarenal collecting systems. No ureteral stone. Nondilated ureters. Gastrointestinal tract: Normal caliber, attenuation and wall thickness of the gastrointestinal tract. No inflammatory changes. Normal small bowel mesentery. Unseen appendix without signs of acute appendicitis. Vascular: Chronic aortoiliac atherosclerotic mural calcification. Normal outer wall to outer wall abdominal aortic caliber. Patency and luminal caliber of the abdominopelvic arterial and venous vasculature cannot be assessed on this noncontrast study. Peritoneal Cavity/Retroperitoneum: No ascites. No adenopathy. PELVIS No bladder lesion is identified. No significant incidental findings related to the prostate or seminal vesicles. No significant ascites. No adenopathy. SKELETON AND BODY WALL Chronic compression deformities of L1, L3, L4 and L5. Diffuse osteopenia. 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 LOWER THORAX Benign calcified right lower lobe granuloma. Right middle lobe subsegmental atelectasis versus nonspecific minor fibrosis. Posterior basilar segment left lower lobe subsegmental bronchial wall thickening consistent with nonspecific bronchitis. Bilateral lower lobe dependent hypoventilatory changes. Mild proximal left anterior descending atherosclerotic coronary calcification. IMPRESSION: 1. No acute findings to explain left flank pain. Specifically, no evidence of left upper urinary tract urolithiasis or signs of obstructive uropathy. 2. Incompletely characterized (on this noncontrast study) 4.7 cm exophytic left lower pole renal cortical cyst with intracystic calcified septations. Calcification is not a suspicious feature as an isolated finding. The number of septations is unknown on the basis of this study. A nonemergent renal mass protocol CT or MRI is suggested for further characterization which can be performed at a clinically appropriate time (that is, in a nonacute care setting). 3. Diffusely hypoattenuating hepatic parenchyma. Differential diagnostic considerations include hemochromatosis. 4. Additional incidental findings described above. Please note that all CT scans at this facility use dose modulation, iterative reconstruction, and/or weight-based dosing when appropriate to reduce radiation dose to as low as reasonably achievable. Dictated by Donell Pyle MD @ 07/24/2024 9:25:56 AM (Electronic Signature) Patient: [facility] Facility:?[facility] Patient ID:?[id number] Site Patient ID:?[id number]. Site :?[id number] Study:?CT-Abdomen/Pelvis 118CC ISOVUE 370-07/24/2024 11:07:15 AM Ordering Physician:Lilly Harris Final Report: INDICATION: Left flank pain. Abnormal urinalysis. Indeterminate left renal mass. COMPARISON: Same day noncontrast CT of the abdomen and pelvis. TECHNIQUE: Renal mass protocol contrast-enhanced CT of the abdomen and pelvis with 118 cc of Isovue 370 intravenous contrast. Postcontrast series acquired in the corticomedullary and nephrographic phases. Comparison is made with the earlier noncontrast CT of the abdomen and pelvis performed today. Please note that all CT scans at this facility use dose modulation, iterative reconstruction, and/or weight-based dosing when appropriate to reduce radiation dose to as low as reasonably achievable. FINDINGS: ABDOMEN Liver: 10 mm cyst adjacent to the intersegmental fissure (6; 31). Too small to characterize hypodense focus in segment 4A (6; 18) statistically likely to represent a cyst. No routine imaging surveillance is indicated for such findings. Linear calcification within the posterior superior right hepatic lobe conforming to a tributary of the inferior vena cava is consistent with chronic calcified thrombus, for example. No intrahepatic biliary ductal dilatation. Patent portal veins. Patent hepatic veins. Gallbladder: No evidence of cholelithiasis. The gallbladder is nondistended. There is uniform mucosal enhancement. A small nodule is seen adjacent to the medial neck of the gallbladder (series 2; image 40) consistent with a nonenlarged morphologically normal lymph node, for example. No pericholecystic inflammatory changes. Normal common duct caliber. Pancreas: Normal contour and attenuation. No peripancreatic inflammatory changes. No significant focal lesion. Normal main duct caliber. Spleen: Not enlarged. No significant focal lesion. Patent splenic artery and vein. Adrenal Glands: Symmetrical adrenal glands. No significant focal lesion. Kidneys: There is no suspicious enhancement or other complicated features related to the dominant exophytic left lower pole renal cortical lesion which demonstrates a few thin nonenhancing calcified internal septations (Bosniak 2, benign). A small interpolar nonobstructing right renal sinus nephrolith is again noted (2; 68). No dilatation of the intrarenal collecting systems. No ureteral stone. Nondilated ureters. Patent renal arteries and veins. Gastrointestinal tract: No acute findings. Incidental note is made of a D2 segment duodenal periampullary diverticulum. Vascular: Chronic aortoiliac atherosclerotic mural calcification. Abdominal aorta and its major proximal branches including the celiac, superior mesenteric, inferior mesenteric, renal, and bilateral common iliac arteries are patent. Patent superior mesenteric vein. Peritoneal Cavity/Retroperitoneum: No ascites. No adenopathy. PELVIS No bladder lesion is identified. No significant incidental findings related to the prostate or seminal vesicles. No significant ascites. No adenopathy. SKELETON AND BODY WALL Incidental findings as described in the earlier report. LOWER THORAX Incidental findings as described in the earlier report. IMPRESSION: 1. The left lower pole renal cortical cyst for which this examination was performed for further characterization is benign (Bosniak 2). 2. No imaging findings to indicate pyelonephritis or cystitis in this patient with left flank pain and an abnormal urinalysis. 3. Incidental small nonobstructing right nephrolith. No evidence of obstructive uropathy. 4. Additional incidental findings as described above and in the report from the examination performed earlier the same day. Please note that all CT scans at this facility use dose modulation, iterative reconstruction, and/or weight-based dosing when appropriate to reduce radiation dose to as low as reasonably achievable. Dictated by Donell Pyle MD @ 07/24/2024 11:29:38 AM (Electronic Signature) CT- Other: Attestation: I have reviewed the pertinent imaging results. Radiologist's impression: Patient: [facility] Facility:?[facility] Patient ID:?[id number] Site Patient ID:?[id number]. Site :?[id number] Study:?CT-Spine Lumbar -07/24/2024 8:59:41 AM Ordering Physician:?Prince Harris Final Report: INDICATION: Left flank pain/back pain TECHNIQUE: CT lumbar spine without contrast. COMPARISON: None. FINDINGS: Vertebrae: Straightening of normal lumbar lordosis. Diffuse osseous demineralization. Compression deformity of L1 with 70 percent loss, L3 with 50 percent height loss, L4 with 20 percent height loss and L5 with 30 percent height loss. No evidence of retropulsion. Discs and facet joints: Degenerative disease of the lumbar spine with multilevel facet arthropathy: -L1-L2: Mild central stenosis. No significant neural foraminal narrowing. -L2-L3: Moderate central stenosis. No significant neural foraminal narrowing. -L3-L4: Moderate central stenosis. No significant neural foraminal narrowing. -L4-L5: Severe central stenosis. Mild bilateral neural foraminal narrowing. -L5-S1: No significant central or neural foraminal narrowing. Extraspinal findings: See separately dictated CT abdomen pelvis for details regarding abdominal and pelvic organs. No evidence of prevertebral soft tissue swelling. IMPRESSION: Multilevel compression deformities of the lumbar spine, which are age-indeterminate. 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 Please note that all CT scans at this facility use dose modulation, iterative reconstruction, and/or weight-based dosing when appropriate to reduce radiation dose to as low as reasonably achievable. Dictated by Rosangela Ramsey MD @ 07/24/2024 9:18:27 AM (Electronic Signature) Discharge Plan Discharge Clinical Impression: Lumbar back pain, Left flank pain Urinary tract infection Qualifiers: Urinary tract infection type: site unspecified Hematuria presence: without hematuria Qualified Code(s): N39.0 - Urinary tract infection, site not specified Instructions: Urinary Tract Infection in Men (ED), Flank Pain (ED), Back Pain (ED) Additional Instructions: Start antibiotic and take as prescribed. If treating your urinary tract infection does not alter your left flank pain, do think that the left flank pain might be coming from thoracic disc disease. Your lumbar spine does show changes of degenerative disease as well as spinal canal stenosis. You did tell me that your calves will start bothering you with walking, this certainly could be from spinal stenosis in do recommend you follow-up. Please take your imaging results that I provided you and get yourself scheduled with a clinic for further evaluation and management. You may need more work on your back, may need MRI. Activity Level: Activity as Tolerated Prescriptions: New cephalexin 500 mg tablet 500 mg PO TID Qty: 21 0RF Follow Up/Referrals: Juve Lutz MD [Primary Care Provider] - Stand Alone Forms: [employer] Info Instructions
--- NOTE | 2024-07-24 08:28 | CRLHL7_ITS ---
For Patients: As a result of the Century Cures Act, medical imaging exams and procedure reports are released immediately into your electronic medical record. You may view this report before your referring provider. If you have questions, please contact your health care provider. INDICATION: Left flank pain/back pain TECHNIQUE: CT lumbar spine without contrast. COMPARISON: None. FINDINGS: Vertebrae: Straightening of normal lumbar lordosis. Diffuse osseous demineralization. Compression deformity of L1 with 70 percent loss, L3 with 50 percent height loss, L4 with 20 percent height loss and L5 with 30 percent height loss. No evidence of retropulsion. Discs and facet joints: Degenerative disease of the lumbar spine with multilevel facet arthropathy: -L1-L2: Mild central stenosis. No significant neural foraminal narrowing. -L2-L3: Moderate central stenosis. No significant neural foraminal narrowing. -L3-L4: Moderate central stenosis. No significant neural foraminal narrowing. -L4-L5: Severe central stenosis. Mild bilateral neural foraminal narrowing. -L5-S1: No significant central or neural foraminal narrowing. Extraspinal findings: See separately dictated CT abdomen pelvis for details regarding abdominal and pelvic organs. No evidence of prevertebral soft tissue swelling. IMPRESSION: Multilevel compression deformities of the lumbar spine, which are age-indeterminate. 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 Please note that all CT scans at this facility use dose modulation, iterative reconstruction, and/or weight-based dosing when appropriate to reduce radiation dose to as low as reasonably achievable. Dictated by Rosangela Ramsey MD @ 07/24/2024 9:18:27 AM (Electronically Signed)
--- NOTE | 2024-07-24 08:28 | CRLHL7_ITS ---
For Patients: As a result of the 21st Century Cures Act, medical imaging exams and procedure reports are released immediately into your electronic medical record. You may view this report before your referring provider. If you have questions, please contact your health care provider. INDICATION: Left flank pain. COMPARISON: None available. TECHNIQUE: CT of the abdomen and pelvis without intravenous contrast. Please note that all CT scans at this facility use dose modulation, iterative reconstruction, and/or weight-based dosing when appropriate to reduce radiation dose to as low as reasonably achievable. FINDINGS: The study is performed without intravenous contrast. This limits the sensitivity of the exam for the detection bowel pathology, focal lesions of the abdominopelvic viscera and vascular pathology including significant vascular stenosis, occlusion and dissection. ABDOMEN Liver: Normal contour and attenuation.Diffuse hepatic parenchymal hyperattenuation (89 HU). Differential diagnostic considerations include hemochromatosis. No significant focal lesion. No intrahepatic biliary ductal dilatation. Gallbladder: Suspect cholelithiasis. No pericholecystic inflammatory changes. Normal common duct caliber. Pancreas: Normal contour and attenuation. No peripancreatic inflammatory changes. No significant focal lesion. Normal main duct caliber. Spleen: Not enlarged. No significant focal lesion. Adrenal Glands: Symmetrical adrenal glands. No significant focal lesion. Kidneys: Incompletely characterized exophytic left lower pole renal cortical cyst measuring 4.7 cm in greatest axial dimensions (3; 78) otherwise notable for internal septal calcification. Attenuation is that of simple fluid measuring less than 10 HU. No solid elements are identified on this noncontrast study. Additional left renal cortical cysts including a medial exophytic interpolar renal cortical cyst measuring 4.2 cm (3; 56) and a 1.5 cm left lower pole renal cortical cyst (3; 76). 3 mm nonobstructing interpolar right nephrolith (3; 63). No dilatation of the intrarenal collecting systems. No ureteral stone. Nondilated ureters. Gastrointestinal tract: Normal caliber, attenuation and wall thickness of the gastrointestinal tract. No inflammatory changes. Normal small bowel mesentery. Unseen appendix without signs of acute appendicitis. Vascular: Chronic aortoiliac atherosclerotic mural calcification. Normal outer wall to outer wall abdominal aortic caliber. Patency and luminal caliber of the abdominopelvic arterial and venous vasculature cannot be assessed on this noncontrast study. Peritoneal Cavity/Retroperitoneum: No ascites. No adenopathy. PELVIS No bladder lesion is identified. No significant incidental findings related to the prostate or seminal vesicles. No significant ascites. No adenopathy. SKELETON AND BODY WALL Chronic compression deformities of L1, L3, L4 and L5. Diffuse osteopenia. 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 LOWER THORAX Benign calcified right lower lobe granuloma. Right middle lobe subsegmental atelectasis versus nonspecific minor fibrosis. Posterior basilar segment left lower lobe subsegmental bronchial wall thickening consistent with nonspecific bronchitis. Bilateral lower lobe dependent hypoventilatory changes. Mild proximal left anterior descending atherosclerotic coronary calcification. IMPRESSION: 1. No acute findings to explain left flank pain. Specifically, no evidence of left upper urinary tract urolithiasis or signs of obstructive uropathy. 2. Incompletely characterized (on this noncontrast study) 4.7 cm exophytic left lower pole renal cortical cyst with intracystic calcified septations. Calcification is not a suspicious feature as an isolated finding. The number of septations is unknown on the basis of this study. A nonemergent renal mass protocol CT or MRI is suggested for further characterization which can be performed at a clinically appropriate time (that is, in a nonacute care setting). 3. Diffusely hypoattenuating hepatic parenchyma. Differential diagnostic considerations include hemochromatosis. 4. Additional incidental findings described above. Please note that all CT scans at this facility use dose modulation, iterative reconstruction, and/or weight-based dosing when appropriate to reduce radiation dose to as low as reasonably achievable. Dictated by Donell Pyle MD @ 07/24/2024 9:25:56 AM (Electronically Signed)
[2024-07-24 08:43] LABS: Lactate* 1.1 mmol/L (0.5-1.9)
[2024-07-24 08:45] LABS: Basophils Absolute Auto 0.02 K/uL (0.00-0.30); Basophils Percent Auto 0.3 % (0.0-3.0); Eosinophils Absolute Auto 0.12 K/uL (0.00-0.50); Eosinophils Percent Auto 1.8 % (0.0-7.0); Hematocrit 44.1 % (37.0-53.0); Hemoglobin* 14.7 gm/dL (13.5-17.5); Immature Granulocytes Abs Auto 0.02 K/uL (0.00-0.30); Immature Granulocytes Pct Auto 0.3 %; Lymphocytes Absolute Auto 2.11 K/uL (0.90-2.90); Lymphocytes Percent Auto 32.4 % (20-44); Mean Corpuscular HGB Conc 33 gm/dL (32-36); Mean Corpuscular Hemoglobin 34 pg (26-34); Mean Corpuscular Volume 102 fL (80-100); Monocytes Percent Auto 12.9 % (0.0-11.0); Neutrophils Absolute Auto 3.41 K/uL (1.7-7.0); Neutrophils Percent Auto 52.3 % (42.0-72.0); Platelet Count* 261 K/uL (140-440); Red Blood Count 4.33 m/uL (4.30-5.90); White Blood Count* 6.52 K/uL (4.50-11.00)
[2024-07-24 08:46] LABS: Slide Review Reflex No
[2024-07-24 09:03] LABS: Albumin* 4.3 g/dL (3.3-5.0); Chloride* 107 mmol/L (96-114); Potassium* 4.3 mmol/L (3.6-5.1); Sodium* 139 mmol/L (135-149)
[2024-07-24] MEDS: 0.9 % SODIUM CHLORIDE 500 ML 500 ML IV (09:03)
[2024-07-24 09:05] LABS: Est. Creatinine Clearance* 62.79; Estimated Glomerular Filt Rate 74 ml/min
[2024-07-24 09:06] LABS: Alanine Aminotransferase* 17 U/L (4-50); Alkaline Phosphatase* 102 U/L (40-150); Anion Gap 8 mEq/L (7-15); Aspartate Amino Transferase* 29 U/L (12-35); Bilirubin Direct* 0.3 mg/dL (0.0-0.5); Bilirubin Total* 0.8 mg/dL (0.1-1.5); Blood Urea Nitrogen* 24 mg/dL (7-30); Carbon Dioxide* 24 mmol/L (20-32); Glucose* 107 mg/dL (60-115); Total Protein* 7.3 g/dL (6.0-8.3)
[2024-07-24 09:07] LABS: Calcium* 9.3 mg/dL (8.4-10.6)
[2024-07-24 09:30] LABS: Appearance Urine Clear (Clear); Bilirubin Urine Negative (Negative); Blood Urine Negative (Negative); Color Urine Yellow (Yellow); Glucose Urine Negative (Negative); Ketones Urine Negative (Negative); Leukocyte Esterase Urine 1+ (Negative); Nitrite Urine Positive (Negative); Protein Urine Negative (Negative); Specific Gravity Urine 1.025 (1.000-1.030); Urobilinogen Urine 0.2 (0.2-1.0)
[2024-07-24 10:08] LABS: Bacteria Urine Many; RBC Urine 0-2 (0-2); Squamous Epithelial Cell Urine Few (None-Few)
--- NOTE | 2024-07-24 10:21 | CRLHL7_ITS ---
For Patients: As a result of the 21st Century Cures Act, medical imaging exams and procedure reports are released immediately into your electronic medical record. You may view this report before your referring provider. If you have questions, please contact your health care provider. INDICATION: Left flank pain. Abnormal urinalysis. Indeterminate left renal mass. COMPARISON: Same day noncontrast CT of the abdomen and pelvis. TECHNIQUE: Renal mass protocol contrast-enhanced CT of the abdomen and pelvis with 118 cc of Isovue 370 intravenous contrast. Postcontrast series acquired in the corticomedullary and nephrographic phases. Comparison is made with the earlier noncontrast CT of the abdomen and pelvis performed today. Please note that all CT scans at this facility use dose modulation, iterative reconstruction, and/or weight-based dosing when appropriate to reduce radiation dose to as low as reasonably achievable. FINDINGS: ABDOMEN Liver: 10 mm cyst adjacent to the intersegmental fissure (6; 31). Too small to characterize hypodense focus in segment 4A (6; 18) statistically likely to represent a cyst. No routine imaging surveillance is indicated for such findings. Linear calcification within the posterior superior right hepatic lobe conforming to a tributary of the inferior vena cava is consistent with chronic calcified thrombus, for example. No intrahepatic biliary ductal dilatation. Patent portal veins. Patent hepatic veins. Gallbladder: No evidence of cholelithiasis. The gallbladder is nondistended. There is uniform mucosal enhancement. A small nodule is seen adjacent to the medial neck of the gallbladder (series 2; image 40) consistent with a nonenlarged morphologically normal lymph node, for example. No pericholecystic inflammatory changes. Normal common duct caliber. Pancreas: Normal contour and attenuation. No peripancreatic inflammatory changes. No significant focal lesion. Normal main duct caliber. Spleen: Not enlarged. No significant focal lesion. Patent splenic artery and vein. Adrenal Glands: Symmetrical adrenal glands. No significant focal lesion. Kidneys: There is no suspicious enhancement or other complicated features related to the dominant exophytic left lower pole renal cortical lesion which demonstrates a few thin nonenhancing calcified internal septations (Bosniak 2, benign). A small interpolar nonobstructing right renal sinus nephrolith is again noted (2; 68). No dilatation of the intrarenal collecting systems. No ureteral stone. Nondilated ureters. Patent renal arteries and veins. Gastrointestinal tract: No acute findings. Incidental note is made of a D2 segment duodenal periampullary diverticulum. Vascular: Chronic aortoiliac atherosclerotic mural calcification. Abdominal aorta and its major proximal branches including the celiac, superior mesenteric, inferior mesenteric, renal, and bilateral common iliac arteries are patent. Patent superior mesenteric vein. Peritoneal Cavity/Retroperitoneum: No ascites. No adenopathy. PELVIS No bladder lesion is identified. No significant incidental findings related to the prostate or seminal vesicles. No significant ascites. No adenopathy. SKELETON AND BODY WALL Incidental findings as described in the earlier report. LOWER THORAX Incidental findings as described in the earlier report. IMPRESSION: 1. The left lower pole renal cortical cyst for which this examination was performed for further characterization is benign (Bosniak 2). 2. No imaging findings to indicate pyelonephritis or cystitis in this patient with left flank pain and an abnormal urinalysis. 3. Incidental small nonobstructing right nephrolith. No evidence of obstructive uropathy. 4. Additional incidental findings as described above and in the report from the examination performed earlier the same day. Please note that all CT scans at this facility use dose modulation, iterative reconstruction, and/or weight-based dosing when appropriate to reduce radiation dose to as low as reasonably achievable. Dictated by Donell Pyle MD @ 07/24/2024 11:29:38 AM (Electronically Signed)
[2024-07-24] MEDS: cefTRIAXone 1 GM in 0.9 % SODIUM CHLORIDE Mini-bag 100 ML IVPB (11:54)
== END 2024-07-24 12:10 | disposition home or self-care (01) ==
PROVIDERS: Emergency Provider Family Medicine; PCP Internal Medicine
DX: N39.0 Urinary tract infection, site not specified (principal); M54.50 Low back pain, unspecified; R10.9 Unspecified abdominal pain
CPT/HCPCS: 36415; 72131; 74176; 74177; 80053; 81001; 82248; 83605; 85025; 86140; 87086; 87186; 96374; 99284; 99285; J0696; J7030; Q9967